=== PATIENT | male | born 1965 | race African-American/Black ===

== ENCOUNTER 2017-12-31 17:51 | Inpatient (IN) | payer BC ==
[~2017-12-31] VITALS: Ht 152.4 cm; Wt 81.6 kg
--- NOTE | ~2017-12-31 | EKG ---
[address] [address] ELECTROCARDIOGRAM REPORT Name: PREETHI JON Room #: 227-P [facility] IN M.R.#: [id number] Admission: 12/31/17 Attend Phys: John James DO Discharge: 01/03/18 Date of : 69 Report #: [id number] THIS REPORT FOR: //name// [facility] ED Test Date: 2017-12-31 Test Time: 19:57:08 Pat Name: PREETHI JON Department: Room: [facility] Gender: M [employer] Administrator: sang : 1965 Requested By: Mayela Celestin Order Number: [id number] MD: Fito Oswald Measurements Intervals [place] Rate: 56 P: 44 IA: 168 QRS: 25 QRSD: 82 T: 254 QT: 470 QTc: 454 Interpretive Statements Sinus rhythm Probable left atrial enlargement LVH with secondary repolarization abnormality Compared to ECG 04/19/2008 05:31:29 Electronically Signed On 01-05-2018 16:57:16 CDT by Fito Oswald [email or web address] <ELECTRONICALLY SIGNED> By: Fito Oswald MD 01/05/181656 56 56 Fito Oswald MD /EPI
--- NOTE | ~2017-12-31 | HC ---
[facility] [address] CONSULTATION Name: PREETHI JON Room #: 227-P [facility] IN M.R.#: [id number] Admission: 12/31/17 Attend Phys: John James DO Discharge: 01/03/18 Date of : 69 Report #: [id number] THIS REPORT FOR: //name// CC: Tez Douglas [facility] physician/PCP REASON FOR CONSULTATION: Elevated creatinine. REASON FOR PRESENTATION: Abnormal labs. HISTORY OF PRESENT ILLNESS: A 52-year-old with extensive hypertension history. There have been numerous changes of his medications in the past. He has stage 3-4 chronic kidney disease. He has been followed by Pedro Bhatia. He has had repeated hospitalizations at [facility] along with [facility] for blood pressure being out of control. He is currently maintained on hydrochlorothiazide, metoprolol, and hydralazine. He has been trying to lose some weight to improve his blood pressure reading; however, at bedside tells me that he is sometimes noncompliant with his salt restriction. She also stated that he is not compliant with his obstructive sleep apnea machine. He denies any chest pain or shortness of breath. No lower extremity swelling. On presentation to the emergency room, he was found to have a high BUN and creatinine mandating a Nephrology consultation. PAST MEDICAL HISTORY: Hypertension. MEDICATIONS: 1. Metoprolol . 2. Hydrochlorothiazide. 3. Hydralazine. ALLERGIES: PENICILLIN. SOCIAL HISTORY: He denies drug or alcohol abuse. He works for [employer]. FAMILY HISTORY: Significant for hypertension. REVIEW OF SYSTEMS: CONSTITUTIONAL: No fever or chills. CARDIOVASCULAR: No chest pain or palpitation. PULMONARY: No cough or hemoptysis. GASTROINTESTINAL: No nausea or vomiting. GENITOURINARY: No frequency or urgency. PHYSICAL EXAMINATION: GENERAL: He is alert, oriented, in no apparent distress. VITAL SIGNS: Blood pressure is 198/106. [facility] [address] [place] [address] CONSULTATION Name: PREETHI JON Room #: 227-P [facility] IN ..#: [id number] Admission: 12/31/17 Attend Phys: John James DO Discharge: 01/03/18 Date of : 69 Report #: [id number] HEAD AND NECK: No jugular venous distention, no bruit, no thyromegaly. CHEST: Decreased air entry bilaterally. CARDIOVASCULAR: Regular with no rub detected. ABDOMEN: Soft, nontender with no hepatosplenomegaly. LOWER EXTREMITIES: No edema with intact peripheral pulses. LABORATORY DATA: Reviewed. BUN was 107, creatinine was 9.1. Calcium was 7.4, phosphorus was 6.3. DIAGNOSTICS: Renal ultrasound reviewed. ASSESSMENT, IMPRESSION AND PLAN: 1. End-stage renal disease. 2. Anemia. 3. Uncontrolled hypertension. 4. Hypocalcemia. 6. Hyperphosphatemia. 7. It is apparent that the patient's renal disease is due to uncontrolled blood pressure. He has some medical history and [facility] will try to get those records. 8. As for now, discontinue IV fluid. 9. Resume the patient's losartan. 10. Add Aldactone. 11. He did not tolerate Norvasc in the past and we will stay away from that for now. 12. Continue with hydralazine and titrate up. 13. He will likely end up on dialysis. <ELECTRONICALLY SIGNED> By: Greta Faria MD 01/06/18 0741 1020 1149 Greta Faria MD /nt
[~2017-12-31 17:51] MED LIST: AMLODIPINE BESY10 MG PO; COZAAR 50 MG TA50 M1 PO; HYDRALAZINE 5050 M1 PO; ONE DAILY FOR1 EACH PO; ULTRAM 50MG TAB50 MG PO; VITAMIN D400 UNI1 PO; ZOFRAN ODT4 MG PO
[2017-12-31 17:52] VITALS: BP 177/95
[2017-12-31] MEDS ORDERED: MAXZIDE-25 MG1 EACH PO (18:00)
[2017-12-31] MEDS ORDERED: TOPROL XL100 MG PO (18:00)
[2017-12-31 18:53] LABS: ABSOLUTE NEUTROPHILS 4.2 thou/uL (1.4-8.2); BASOPHILS 0.9 % (0.0-2.0); EOSINOPHILS 4.5 % (0.0-3.0); HEMATOCRIT 28.5 % (42.0-52.0); HEMOGLOBIN 9.8 gm/dL (14.0-18.0); LYMPHOCYTES 29.6 % (24.0-44.0); MCH 32.3 pg (26.0-34.0); MCHC 34.4 g/dL (28.0-37.0); MCV 93.9 fL (80.0-100.0); PLATELET COUNT 228 thou/uL (150-400); RBC 3.03 mil/uL (4.50-6.00); RDW 13.5 % (10.5-14.5); WBC 7.2 thou/uL (4.0-11.0)
[2017-12-31 19:00] LABS: CALCIUM 7.3 mg/dL (8.5-10.1); CREATININE 9.5 mg/dL (0.7-1.3); POTASSIUM 5.3 mmol/L (3.5-5.1)
[2017-12-31 19:06] LABS: ALBUMIN 3.7 g/dL (3.4-5.0); TOTAL BILIRUBIN 0.3 mg/dL (<0.1-1.0); TOTAL PROTEIN 7.8 g/dL (6.4-8.2)
[2017-12-31 19:46] LABS: URINE BILIRUBIN NEGATIVE (Negative); URINE BLOOD TRACE (Negative); URINE CLARITY CLEAR; URINE COLOR YELLOW; URINE GLUCOSE-RANDOM* NEGATIVE (Negative); URINE KETONES NEGATIVE (Negative); URINE LEUKOCYTES NEGATIVE (Negative); URINE NITRITE NEGATIVE (Negative); URINE PROTEIN (DIPSTICK) 2+ (Negative); URINE UROBILINOGEN 0.2 E.U./dl (0.2-1.0)
[2017-12-31 19:57] LABS: BACTERIA None Seen /HPF (None Seen); CASTS None Seen /LPF (None Seen); CRYSTALS None Seen /LPF (None Seen); MUCUS 0-3 Light strn/LPF (None Seen); SQUAMOUS None Seen /LPF (0-3); URINE RBC 0-2 Rare /HPF (0-2); URINE WBC 0-5 Rare /HPF (0-5)
[2017-12-31 20:47] VITALS: BP 185/98
[2017-12-31 20:56] VITALS: BP 189/103
[2017-12-31 21:30] VITALS: BP 192/98
[2018-01-01 04:36] VITALS: BP 199/101
[2018-01-01 05:23] LABS: HEMOGLOBIN 9.5 gm/dL (14.0-18.0); MCH 31.9 pg (26.0-34.0); MCHC 33.8 g/dL (28.0-37.0); MCV 94.4 fL (80.0-100.0); RBC 2.97 mil/uL (4.50-6.00); RDW 13.6 % (10.5-14.5); WBC 6.7 thou/uL (4.0-11.0)
[2018-01-01 05:27] LABS: CALCIUM 7.4 mg/dL (8.5-10.1); CREATININE 9.1 mg/dL (0.7-1.3); MAGNESIUM 2.3 mg/dL (1.8-2.4); PHOSPHORUS 6.3 mg/dL (2.5-4.9); POTASSIUM 4.4 mmol/L (3.5-5.1)
[2018-01-01 05:31] LABS: % SATURATION 29 % (20-39); IRON 69 ug/dL (65-175); TIBC 240 ug/dL (250-450)
[2018-01-01 05:43] LABS: TSH 3.177 uIU/mL (0.358-3.740)
[2018-01-01 09:06] VITALS: BP 198/106
[2018-01-01 13:05] LABS: FOLIC ACID 8.2 ng/mL (8.6-58.9)
[2018-01-01 20:00] VITALS: BP 138/82
[2018-01-02 05:30] VITALS: BP 152/86
[2018-01-02 06:06] LABS: ALBUMIN 3.6 g/dL (3.4-5.0); CALCIUM 8.1 mg/dL (8.5-10.1); CREATININE 8.6 mg/dL (0.7-1.3); PHOSPHORUS 7.3 mg/dL (2.5-4.9)
[2018-01-02 06:25] LABS: POTASSIUM 5.6 mmol/L (3.5-5.1)
[2018-01-02 06:51] LABS: HEMATOCRIT 28.7 % (42.0-52.0); MCHC 34.2 g/dL (28.0-37.0); MCV 93.7 fL (80.0-100.0); RBC 3.06 mil/uL (4.50-6.00); RDW 13.4 % (10.5-14.5); WBC 7.4 thou/uL (4.0-11.0)
[2018-01-02 07:00] LABS: HEMOGLOBIN 9.8 gm/dL (14.0-18.0)
[2018-01-02 13:54] VITALS: BP 173/104
[2018-01-02 16:53] VITALS: BP 160/90
[2018-01-02 21:23] VITALS: BP 180/100
[2018-01-03] VITALS (7 sets, daily range): BP systolic 120–196; BP diastolic 74–113
[2018-01-03 08:28] LABS: HEMATOCRIT 28.9 % (42.0-52.0); HEMOGLOBIN 9.8 gm/dL (14.0-18.0); MCHC 34.1 g/dL (28.0-37.0); RBC 3.07 mil/uL (4.50-6.00); RDW 13.3 % (10.5-14.5); WBC 8.2 thou/uL (4.0-11.0)
[2018-01-03 08:43] LABS: CALCIUM 8.1 mg/dL (8.5-10.1); CREATININE 9.5 mg/dL (0.7-1.3); PHOSPHORUS 6.7 mg/dL (2.5-4.9)
[2018-01-03 08:43] LABS: ALBUMIN 3.5 g/dL (3.4-5.0); CALCIUM 8.2 mg/dL (8.5-10.1); CREATININE 9.4 mg/dL (0.7-1.3); PHOSPHORUS 6.4 mg/dL (2.5-4.9); POTASSIUM 4.6 mmol/L (3.5-5.1)
[2018-01-03] MEDS ORDERED: RENVELA800 MG PO (11:50)
[2018-01-03] MEDS ORDERED: COZAAR100 MG PO (11:50)
[2018-01-03] MEDS ORDERED: HYDRALAZINE 5050 MG PO (11:53)
== END 2018-01-03 17:19 | disposition home or self-care (01) | DRG 682 ==
LOC: ER 17:51 → 4E 20:24 → EROBS 20:24 → 4E 21:26 → SICU 01-02 13:22
PROVIDERS: Hospitalist; Nurse Practitioner Acute Care; Student in an Organized Health Care Education/Training Program
DX: I12.0 Hypertensive chronic kidney disease with stage 5 chronic kidney disease or end stage renal disease (principal); N18.6 End stage renal disease; N17.9 Acute kidney failure, unspecified; I16.0 Hypertensive urgency; D64.9 Anemia, unspecified; E83.51 Hypocalcemia; E83.39 Other disorders of phosphorus metabolism; E87.5 Hyperkalemia; G47.33 Obstructive sleep apnea (adult) (pediatric); Z88.0 Allergy status to penicillin; Z82.49 Family history of ischemic heart disease and other diseases of the circulatory system; Z91.19 Patient's noncompliance with other medical treatment and regimen; Z83.3 Family history of diabetes mellitus; Z84.1 Family history of disorders of kidney and ureter; Z90.49 Acquired absence of other specified parts of digestive tract; Z99.2 Dependence on renal dialysis
CPT/HCPCS: 10183; 15002